=== PATIENT | female | born 1950 | race Caucasian/White ===

== ENCOUNTER 2025-08-10 08:13 | Observation (INO) | payer MEDICARE ==
--- NOTE | 2025-08-04 15:40 | ELECTROCARDIOGRAPH REPORT ---
[facility] Test Date: 2025-08-04 Test Time: 15:38:25 Pat Name: RICKY MARCUS Department: [facility]-PRE-OP Patient ID: [id number] Room: Gender: F Catering Operations Manager: john : 1950 Requested By: JENNY NEELY Order Number: [id number] Reading MD: Dr. JOCELYNN Mancera Measurements Intervals [place] Rate: 64 P: 80 [place]: 174 QRS: -56 QRSD: 99 T: 143 QT: 422 QTc: 436 Interpretive Statements Sinus rhythm LAD, consider left anterior fascicular block Borderline repolarization abnormality Electronically Signed On 08-06-2025 19:11:[address] JOCELYNN Mancera Please click the below link to view image of tracing.
[2025-08-04 15:47] LABS: MEAN PLATELET VOLUME 9.1 FL (7.4-10.4); PRE OP HEMATOCRIT 43.1 % (35.0-45.0); PRE OP HEMOGLOBIN 14.7 g/dL (12.0-16.0); PRE OP PLATELET COUNT 294 X10'3 (140-440); PRE OP WHITE BLOOD COUNT 6.8 10'3 (4.8-10.8); RED CELL DISTRIBUTION WIDTH 13.1 % (11.5-14.5)
[2025-08-04 15:57] LABS: PRE OP INR 1.0 INR; PRE OP PARTIAL THROMB. TIME 29.0 SECONDS (22-32); PRE OP PROTIME 10.7 SECONDS (9.0-12.0)
[2025-08-04 16:13] LABS: CREATININE 0.80 MG/DL (0.40-0.90); PRE OP ALT 35 U/L (30-65); PRE OP ANION GAP 9 (8-16); PRE OP AST 24 U/L (10-37); PRE OP BILIRUB, TOTAL 0.4 MG/DL (0.0-1.0); PRE OP GLUCOSE 153 MG/DL (70-104); PRE OP POTASSIUM 3.8 MMOL/L (3.4-5.1); PRE OP SODIUM 144 MMOL/L (135-145); TOTAL CARBON DIOXIDE 29.0 MMOL/L (24-32); eGFR 70 ML/MIN
[~2025-08-10] VITALS: Ht 160 cm; Wt 65.4 kg
[2025-08-10] VITALS (27 sets, daily range): BP systolic 128–169; BP diastolic 45–73; PULSE 63–81; RESP 11–16; TEMP 97.2–98.3; O2SAT 92–98
[2025-08-10] MEDS: ceFAZolin 2gm/dext,iso 50mL 50 ML IV ONE (05:30)
[2025-08-10] MEDS: ringers solution, lacted 1,000 ML IV SCH ×3 (07:40→14:40)
[~2025-08-10 08:13] MED LIST: HYDROmorphone/PF 0.2 MG/ML SYRINGE IV PRN; LEVO50TA8 PO; enalaprilat 1.25mg/ml 2ml vial IV PRN; fentaNYL/PF 50MCG/1 ML 2ML syringe IV PRN; labetalol 20mg/4ml (5mg/ml) syringe IV PRN; morphine 4 MG/ML inj SYRINge IV PRN; ondansetron/PF 4mg/2ml inj IV PRN
[2025-08-10] MEDS ORDERED: methylene blue (5mg/ml) 50mg/10ml ampul IV ONE (10:54)
[2025-08-10] MEDS ORDERED: BUPIVAcaine/PF 2.5mg/ml (0.25%) 10ml vial ONE (10:54)
[2025-08-10] MEDS ORDERED: BUPIVACAINE liposomal/PF 13.3 MG/ML 10mL vial IM ONE (10:55)
[2025-08-10] MEDS ORDERED: midazolam 1 mg/ML 2ml injection ONE (11:49)
[2025-08-10] MEDS ORDERED: fentaNYL /PF 50mcg/ml 5ml ampule ONE (11:49)
[2025-08-10] MEDS ORDERED: 0.9 % SODIUM CHLORIDE 10 ML VIAL ONE ×2 (12:00)
[2025-08-10] MEDS ORDERED: BUPIVAcaine/PF 7.5mg/ml (0.75%) 10ml vial ONE (12:00)
[2025-08-10] MEDS ORDERED: ROPIVAcaine 0.5% (5mg/ml) 30ml vial ONE (12:00)
[2025-08-10] MEDS ORDERED: LIDOcaine 1%/PF 5ML 10 MG/ML VIAL ONE (12:14)
[2025-08-10] MEDS ORDERED: propofol inj 20 ML IV ONE (12:14)
[2025-08-10] MEDS ORDERED: ondansetron/PF 4mg/2ml inj ONE (12:19)
[2025-08-10] MEDS ORDERED: acetaminophen 1,000mg/100ml IV 100 ML IV ONE (12:19)
[2025-08-10] MEDS ORDERED: dexamethasone sod phosphate 4mg/ml inj. ONE (12:25)
[2025-08-10] MEDS ORDERED: labetalol 20mg/4ml (5mg/ml) syringe IV ONE (12:25)
[2025-08-10] MEDS: methylene blue (5mg/ml) 50mg/10ml ampul IV ONE (13:03)
--- NOTE | 2025-08-10 13:22 | ANESTHESIA RECORDS ---
Nerve Block Providers to CC ~ Diagnosis: Nerve Block requested by: FRANCES ASCENCIO MD Neuraxial/Peripheral Nerve Block requested for Post-operative analgesia by Physician above DIAGNOSIS: Post-operative pain. (Body Area) Shoulder: [ ] Arm: [ ] Hand: [ ] Hip: [ ] Knee: [ ] Ankle: [ ] Foot: [ ] Leg: [ ] Abdomen: [ ] Other: [_Bilateral Breast and Axillary area ] Post-operative pain expected to be/is inadequately managed by oral or IV medicines. Regional anesthetic expected to facilitate rehabilitation and/or discharge from facility. Other:[ _] Procedure Performed: Other: [place] PEC I & PEC II blocks Time out Done?: Yes Time of Time out: 11:55 Procedure Details: PROCEDURE DETAILS: Risks, benefits and alternatives explained Informed consent obtained, and patient wishes to proceed Conscious sedation with indicated monitors Patient positioned, pertinent anatomy defined, sterile technique used Needle used: [ ] 3 1/8 inch Stimuplex Ultra 22ga [x ] 4 inch Stimuplex Ultra 20ga [ ] 6 inch Stimuplex Ultra 20ga [ ] 6 inch, Quikbloc over the needle catheter set 20ga [ ] 4 inch Quikbloc over the needle catheter set 20ga [ ]Other: [ ] Loss of twitch @ [ N/A ]mA [x ] Single Injection [ ] Catheter Ultrasound Guidance Used: [x ] Yes [ ] No Attempts:[ once ] Medicines injected: [ ]Clonidine Amt:[ ] [ x ]Dexamethasone Amt:[____4 mgs ] [x ]Ropivacaine Amt:[__0.5% 30 cc ] [x ]Bupivacaine Amt:[__0.25% 30 cc ] [ ]Lidocaine Amt:[ ] [ ]Exparel 1.33%:[ ] [ ]Epinephrine Amt[ ] [ ]Other: [ ] Intermittent aspiration during local anesthetic administration No symptoms of intraneural or intravenous injection Patient tolerated procedure well Comments Left PECS I & PECS II block Procedure done under General anesthesia. Left Arm abducted and Linear probe is applied parasagitally below the Coracoid process and probe slid down and the ribs were identifies. Pectorals Major & Minor and Serratus anterior muscles were identified. Stimuplex 4 needle was used and inserted in plane and 20 cc of local anesthetic injected in plane between Serratus anterior & Pectoralis minor. 10 ccs was injected in between Pectoralis major and minor muscles. Separation of muscles in the facial planes was noted. Right PECS I & PECS II block Procedure done under General anesthesia. Right Arm abducted and Linear probe is applied parasagitally below the Coracoid process and probe slid down and the ribs were identifies. Pectorals Major & Minor and Serratus anterior muscles were identified. Stimuplex 4 needle was used and inserted in plane and 20 cc of local anesthetic injected in plane between Serratus anterior & Pectoralis minor. 10 ccs was injected in between Pectoralis major and minor muscles. Separation of muscles in the facial planes was noted. JESSICA WORTHINGTON MD Aug 10, 2025 13:22
[2025-08-10] MEDS ORDERED: HYDROcodone/acetaminophen 5mg/325mg tablet PO PRN (14:40)
[2025-08-10] MEDS: BUPIVAcaine/PF 2.5 mg/ml (0.25%) 30ml vial IJ ONE (14:51)
--- NOTE | 2025-08-10 15:11 | OPERATIVE REPORT ---
Operative Report Providers to CC CC: JENNY NEELY P DO ~ Date of Procedure: Aug 10, 2025 Pre-Operative Diagnosis: Bilateral breast cancer Post-Operative Diagnosis SAME as PRE-Op Procedure Performed Bilateral simple mastectomy left axillary sentinel node biopsy and right attempted sentinel lymph node biopsy and axillary partial dissection Surgeon: Dr. Jenny Neely Forensic Dna Analyst [place] client PAKaylin Anesthesiologist: Bereket Espinoza Type of Anesthesia: General Findings: Right axillary contents, left axillary sentinel lymph node 1. Only. Radiation changes in the right breast Complications None Prosthetics\Implants used: None Estimated Blood Loss: Less than 20 ml Specimen Removed: Left simple mastectomy oriented short short stitch superior long suture lateral Left axillary sentinel lymph node 1. Right simple mastectomy oriented short stitch superior long lateral Right axillary sentinel lymph node Description of Procedure: Julieta has a history of right breast cancer diagnosed and treated in 2013. She had a lumpectomy followed by radiation therapy. She was diagnosed with right breast cancer and was seen and evaluated in my office and we discussed the surgical options. 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 After further discussion she decided to move forward with bilateral simple mastectomy and bilateral sentinel lymph node biopsies possible axillary dissection. She was seen and evaluated in the preoperative holding area by myself and the anesthesiologist. She had Lymphoseek injections in both breast prior to her arrival to the hospital. An IV was placed and SCDs to lower extremities. The IV antibiotics were administered before the cut of surgery. She was taken to the OR suite and placed on the table in supine position with th e arms extended. General anesthesia was administered and it with an LMA. She had bilateral pecs one and two blocks. Scant both breast and axilla with the gamma probe and hot spots were noticed in each breast inadequate signal was noted in the left axilla and the right axilla had variable counts. I injected 3 mL of methylene blue dye subareolar at the 9:00 left breast 3:00 right breast and massaged for 5 minutes. I started with the left breast. Time-out was performed and agreed upon. I made the markings on both breast. An elliptical incision was made in the left breast with a 10 blade encompassing the central last portion of the left breast. Then decision through the deep dermal layer with the cutting on the cautery. Hemostasis was achieved with Bovie electrocautery. I raised the superior flaps with cat claws retractors and dissected in the subcutaneous plane down to the in ferior aspect of the clavicle. This dissection on also took place medial and laterally to the lateral edge of the sternum and just to the lateral edge of the breast tissue. I then placed the retractors in the inferior flap and dissected in the subcutaneous plane down to the chest wall in the same fashion. The breast mound and fascia was dissected off the pectoralis muscle/chest wall in the superior to inferior medial and lateral directions. Once the specimen was excised. I oriented with short stitch superior and long suture lateral and placed it off the field in formalin. Hemostasis was achieved with Bovie electrocautery and I irrigated copiously that cavity. I turned my attention to the left axillary sentinel lymph node biopsy where I scanned the axillary fascia and noted a hot signal. I opened the axillary fascia just with the border of the pectoralis muscle and opened it with the cautery. I scanned the axillary cavity with the gamma probe. A hot signal was detected I grasped it with a tonsil clamp. And excised it with the ligature. Once I removed from the cavity the count was 1300 hot only there was no evidence of blue dye. The specimen was placed off the field in formalin. I re-scanned the axilla and there was no evidence of any residual counts were activity. The cavity was copiously irrigated. Both cavities were sprayed with 10 mL of Vistaseal. I closed the axillary fascia with 3-0 interrupted Vicryl sutures. The administrative assistant receptionist Mike Khalil PA-C helped with the closure. The incision was closed with deep dermal 3-0 Vicryl interrupted sutures along with the INSORB stapling device and a 3-0 Monocryl Stratafix. Turned my attention to the right mastectomy. The incision was made with a 10 blade and extended through the deep dermal layer with the cutting on the cautery. Hemostasis was achieved with Bovie electrocautery. The superior flap was raised with cat claw retractors. I dissected in the subcutaneous plane down to the chest wall just inferior to the clavicle and lateral to the sternal border and just at the edge of the pectoralis muscle anterior axillary line. The inferior flap was raised with cat claw retractors and dissected down in the subcutaneous plane to the chest wall. I excised the breast and fascia from the chest wall in the superior to inferior directions. The breast fascia was excised removed from the chest wall the specimen was oriented with short stitch superior and long suture lateral and placed in formalin. I turned my attention to the right axillary sentinel lymph node biopsy. I scanned the axillary fascia and opened it with the cautery. There was scant signal but no defined hot spot. After extensive evaluation search with the gamma probe. I performed a partial axillary dissection. The dissection took place just inferior to the axillary vein. And just lateral to the chest wall careful not to injure the long thoracic nerve with the thoracodorsal bundle. The axillary contents was removed and placed off the field. The cavity was irrigated with saline in addition to the breast cavity. I spray 10 mL of Vistaseal into the cavities to assist with hemostasis postoperatively. Also seroma buildup. The incision was closed with deep dermal 3-0 Vicryl interrupted sutures along with the INSORB stapling device and a 3-0 Monocryl Stratafix. The Prineo Dermabond system was placed on both incisions. I injected 0.25% Marcaine. The ADRIAN drains were dressed with a Biopatches and Tegaderm. The top dressings were covered with Telfa and fluffs and ABDs. All needle sponge counts were correct and the patient was taken to recovery in stable condition Counts repoted as correct: Yes JENNY NEELY DO Aug 10, 2025 15:11
[2025-08-10] MEDS: ceFAZolin 2gm/dext,iso 50mL 50 ML IV SCH (19:25)
[2025-08-11] MEDS: ceFAZolin 2gm/dext,iso 50mL 50 ML IV ONE (00:23)
[2025-08-11] MEDS: ondansetron/PF 4mg/2ml inj IV PRN (01:17)
[2025-08-11 02:00] VITALS: BP 136/57; PULSE 71; RESP 17; TEMP 97.4; O2SAT 93
[2025-08-11 06:00] VITALS: BP 143/62; PULSE 73; RESP 16; TEMP 97.8; O2SAT 94
[2025-08-11 08:45] VITALS: RESP 14; O2SAT 98
[2025-08-11 09:05] VITALS: BP 140/65; PULSE 78; RESP 16; TEMP 98.3; O2SAT 98
--- NOTE | 2025-08-11 09:47 | PROGRESS NOTE ---
Progress Note Dictate Providers to CC CC: JENNY NEELY DO ~ Progress Note: Postop day #1. Status post bilateral simple mastectomy left axillary sentinel lymph node biopsy right axillary partial dissection Central Line/PICC still needed: N\A Antibiotic Ordered?: Yes If Yes, Indications: Postop surgical prophylaxis If Yes, Anticipated Duration: Two postop doses q.8 hours MRSA Education MRSA Education Provided to pt: N/A Subjective Subjective Feeling good today has no pain and has not required any pain medication. She tolerated her diet. She is ambulating. Objective Vitals Vital Signs Date Time Temp Pulse Resp B/P (MAP) Pulse Ox O2 Delivery O2 Flow Rate FiO2 08/11/25 08:45 14 98 Room Air 08/11/25 06:00 97.8 73 143/62 (89) 08/10/25 16:40 0.0 Objective Alert and oriented x3 no acute distress Chest dressing without drainage. Flat no swelling. Bilateral ADRIAN drain output is serosanguineous Extremities: No cyanosis clubbing or edema of the lower extremities no evidence of lymphedema swelling in the upper extremities Coagulation Studies Laboratory Tests Test 08/04/25 15:30 Prothrombin Time 10.7 SECONDS (9.0-12.0) INR International Normalized Ratio 1.0 INR Activated Partial Thromboplast Time 29 SECONDS (22-32) Counseling Services Smoking & Tobacco Cessation: N/A Problem\Assessment\Plan Problems/Diagnosis: (1) Bilateral malignant neoplasm of breast in female Assessment & Plan: Postop day #1. Status post bilateral simple mastectomy left axillary sentinel lymph node biopsy right axillary partial dissection Bilateral breast cancer and history of right breast cancer 2013 Discharge home today, patient is stable Patient has been prescribed pain medication and oral antibiotics for prophylaxis Teach ADRIAN drain care Follow Dr. Neely postoperative instructions and call with any concerns Dr. Neely will remove ADRIAN drains when output is adequate. Problem Qualifiers (1) Bilateral malignant neoplasm of breast in female: Qualified Codes: C50.911 - Malignant neoplasm of unspecified site of right female breast; C50.912 - Malignant neoplasm of unspecified site of left female breast; Z17.0 - Estrogen receptor positive status [ER+] JENNY NEELY DO Aug 11, 2025 09:47
--- NOTE | 2025-08-11 09:52 | DISCHARGE SUMMARY ---
Discharge Summary Providers to CC CC: JENNY NEELY DO ~ Discharge Summary Assessment Postop day #1. Status post bilateral simple mastectomy left axillary sentinel lymph node biopsy right axillary partial dissection Admission Diagnosis: Bilateral breast cancer Hospital Course DATE OF ADMISSION: 08/10/2025 DATE OF DISCHARGE: 08/11/2025 Discharge Diagnosis\Comment: Bilateral breast cancer Operations\Procedures: Bilateral simple mastectomy left axillary sentinel lymph node biopsy right axillary partial dissection Consultants: None Complications: None Condition on DC: Stable Discharge Summary: Julieta is a 75-year-old female who has a history of right breast cancer status post lumpectomy followed by radiation in 2013. She was recently diagnosed with right breast cancer followed by an additional workup with breast MRI and a 2nd breast cancer was detected in the left breast. Based on our discussion in the office she opted for bilateral simple mastectomy and bilateral axillary surgery. She was seen in the preoperative holding area yesterday on in. She was taken to the OR where bilateral pecs blocks were performed by the anesthesiologist. Her surgery was uneventful as well as a postoperative recovery. Her overnight stay was unremarkable. Postop day 1. She has tolerated a diet, ambulated, used incentive spirometer and requires no pain medication. He will be discharged home today and follow up with Dr. Neely next week for the drain removal. If she has any questions or concerns she is to notify Dr. Neely. She has been prescribed pain medication and antibiotics for home. *Problems/Diagnosis: (1) Bilateral malignant neoplasm of breast in female Status: Resolved Assessment & Plan: Postop day #1. Status post bilateral simple mastectomy left axillary sentinel lymph node biopsy right axillary partial dissection Bilateral breast cancer and history of right breast cancer 2014 Discharge home today, patient is stable Patient has been prescribed pain medication and oral antibiotics for prophylaxis Teach ADRIAN drain care Follow Dr. Neely postoperative instructions and call with any concerns Dr. Neely will remove ADRIAN drains when output is adequate. Total Time Spent on D/C: > 30 Minutes Counseling Services Smoking & Tobacco Cessation: N/A Problem Qualifiers (1) Bilateral malignant neoplasm of breast in female: Qualified Codes: C50.911 - Malignant neoplasm of unspecified site of right female breast; C50.912 - Malignant neoplasm of unspecified site of left female breast; Z17.0 - Estrogen receptor positive status [ER+] JENNY NEELY DO Aug 11, 2025 09:52
== END 2025-08-11 12:21 | disposition home or self-care (01) ==
LOC: PAS 08:13 → SUR 3N 14:46
PROVIDERS: ADMIT Surgery; ATTEND Surgery
DX: C50.411 Malignant neoplasm of upper-outer quadrant of right female breast (principal); C50.412 Malignant neoplasm of upper-outer quadrant of left female breast; R79.1 Abnormal coagulation profile; Z92.3 Personal history of irradiation; Z79.899 Other long term (current) drug therapy; Z98.890 Other specified postprocedural states; Y84.2 Radiological procedure and radiotherapy as the cause of abnormal reaction of the patient, or of later complication, without mention of misadventure at the time of the procedure
CPT/HCPCS: 19303; 38525; 38792; 80053; 82948; 85610; 85730; 86885; 86900; 86901; 93005; 96365; 96366; 96375; A4215; A4618; A6446; A7000; G0378; J0666; J0690; J3490; J7120; Q9968; 36415; 85025; 87081; A6253; A6258; A6449; C9250; J0131; J1100; J2250; J2405; J2704; J2795; J3010